=== PATIENT | female | born 1950 | race Caucasian/White ===

== ENCOUNTER 2018-06-20 17:03 | Emergency (ER) | payer MEDICARE, OTHER ==
[2018-06-20] MEDS: KETOROLAC 30 MG INJ IM (17:35)
[2018-06-20] MEDS: IBUPROFEN 600 MG TAB PO (17:41)
== END 2018-06-20 18:45 | disposition home or self-care (01) ==
LOC: FTE 17:03
DX: M54.2 Cervicalgia (principal); M54.5 Low back pain; I10 Essential (primary) hypertension; E11.9 Type 2 diabetes mellitus without complications
CPT/HCPCS: 72040; 72100; 99283-25